=== PATIENT | female | born 1940 | race Caucasian/White ===

== ENCOUNTER → 2016-08-29 | Outpatient (CLI) | payer OTHER ==
[~2016-08-29] MED LIST: IOPAMIDOL (ISOVUE 370) 100 ML BTL IV ONE
--- NOTE | 2016-08-30 19:50 | CT ---
CT Angiography of the Abdomen and Pelvis Clinical Indications: Abdominal discomfort. Looking for vascular occlusion. Technique: Thinly collimated multidetector helical data were obtained through the abdomen and pelvis during the administration of 90 mL of Isovue-370 IV contrast during the arterial phase of contrast e nhancement. Repeat 5-mm images are obtained in venous phase. Images were then transferred to an [facility] workstation where multiplanar and three-dimensional reconstructions were performed by the ra diologist. Appropriate images were stored on PACS. Dose reduction techniques were utilized. Findings CT Angiography: The descending thoracic aorta is normal at 19 mm. There is no significant atheroscl erotic plaque. There is minimal plaque at the infrarenal abdominal aorta. No dissection or aneurysm . The iliac vessels are tortuous but without significant calcifications. They are patent down to th e proximal thigh, with widely patent inline flow. The patient has a large celiac axis and SMA, both of which are widely patent. The bifurcation vessel s off of these main trunks are also normal. There is a patent DENNIS. Arterial phase evaluation of the solid and visceral organs are normal, with the exception of a small right kidney. This is caused by a chronically diminished size of two right-sided renal arteries. Th e left kidney is normal. Specifically, there is no evidence for biliary dilatation or obstruction, v isceral organ mass, or pancreatic mass. No adenopathy or ascites. There is a moderate amount of sto ol in the colon that is nonspecific. There are some loops of small bowel in the lower pelvis that ar e fluid filled, however, without wall thickening or distention. I think this is nonspecific in this patient. Impressions 1. No vascular stenosis or occlusion in the celiac trunk or SMA. 2. Incidental chronically decreased or small right renal arteries, contributing to right renal atrop hy. 3. Mild amount of atherosclerotic disease of the aorta, without dissection or aneurysm. 4. No specific abnormalities found in the solid and visceral organs.
== END ==
LOC: FIMAGING 14:42
PROVIDERS: ATTEND Internal Medicine
DX: R10.9 Unspecified abdominal pain (principal); N26.1 Atrophy of kidney (terminal); I25.10 Atherosclerotic heart disease of native coronary artery without angina pectoris
CPT/HCPCS: 74174; Q9967

== ENCOUNTER 2017-05-07 11:23 | Observation (INO) | payer OTHER ==
--- NOTE | 2017-05-07 12:04 | EDPHY ---
HPI/HX/ROS/PE/MDM Narrative: CHIEF COMPLAINT: Diarrhea, decreased appetite HPI: The patient is a 77 y/o female complaining of diarrhea and a decreased appetite this morning. This past year she has had stomach cramps, nausea, and diarrhea. This has led to a weight loss from 120 to 95 pounds. She was seen by Dr. 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 They have found no acute findings. In the past 4 weeks her diarrhea has worsened, consisting of 10 episodes. She has not seen any doctors in the past 4 weeks. Today she had another sudden onset of diarrhea and a loss of appetite. She is also always feeling cold The patient and her believe her symptoms are becoming worse. She take medications for her abdominal pain, stomach cramps, and nausea. Denies fever, blood in diarrhea, chest pain, urinary changes or other pertinent symptoms. REVIEW OF SYSTEMS: Aside from elements discussed in the HPI, a comprehensive 10-point review of systems was reviewed and is negative. PMH: Hypertension, hyperlipidemia, chronic pain, hysterectomy SOCIAL HISTORY: at bedside, lives in [place], retired PHYSICAL EXAM: General:Patient is alert, in no acute distress. ENT:Eyes are normal to inspection. ENT inspection normal. Neck: Normal inspection. Full range of motion. Respiratory:No respiratory distress. Breath sounds normal bilaterally. Cardiovascular: Regular rate and rhythm. Strong peripheral pulses. Normal cap refill. Abdomen:The abdomen is nontender to palpation. There are no peritoneal signs. There are normal bowel sounds. Back: Normal to inspection. No tenderness to palpation. Skin: Normal color. No rash. Warm and dry. Extremities: Normal appearance. Full range of motion. Neuro: Oriented x3. Normal motor function. Normal sensory function. Portions of this note were transcribed by an ED scribe. I personally performed the history, physical exam, and medical decision making; and confirm the accuracy of the information in the transcribed note. ED Course: The patient is a 77 y/o female presenting with diarrhea and decreased appetite, onset this morning. She has an extensive history of abdominal pain, stomach cramps, and nausea; however her diarrhea has worsened in the past 4 weeks. Her physical exam is normal. 1428: Reassessed patient and discussed laboratory results. She will admitted due to dehydration, anemia, and failure to thrive. 1440: Spoke with hospitalist service, Dr. Kunz accepts admission of this patient. - Data Points Laboratory Results: Laboratory Results 05/07/17 12:25 05/07/17 12:25 05/07/17 05/07/17 12:25 12:25 WBC 7.10 10^3/uL 10^3/uL (3.80-9.50) RBC 3.88 10^6/uL L 10^6/uL (4.18-5.33) Hgb 11.4 g/dL L g/dL (12.6-16.3) Hct 34.6 % L % (38.0-47.0) MCV 89.2 fL fL (81.5-99.8) MCH 29.4 pg pg (27.9-34.1) MCHC 32.9 g/dL g/dL (32.4-36.7) RDW 13.5 % % (11.5-15.2) Plt Count 267 10^3/uL 10^3/uL (150-400) MPV 9.8 fL fL (8.7-11.7) Neut % (Auto) 65.7 % % (39.3-74.2) Lymph % (Auto) 23.4 % % (15.0-45.0) [place] % (Auto) 9.0 % % (4.5-13.0) Eos % (Auto) 0.8 % % (0.6-7.6) Baso % (Auto) 0.8 % % (0.3-1.7) Nucleat RBC Rel Count 0.0 % % (0.0-0.2) Absolute Neuts (auto) 4.66 10^3/uL 10^3/uL (1.70-6.50) Absolute Lymphs (auto) 1.66 10^3/uL 10^3/uL (1.00-3.00) Absolute Monos (auto) 0.64 10^3/uL 10^3/uL (0.30-0.80) Absolute Eos (auto) 0.06 10^3/uL 10^3/uL (0.03-0.40) Absolute Basos (auto) 0.06 10^3/uL 10^3/uL (0.02-0.10) Absolute Nucleated RBC 0.00 10^3/uL 10^3/uL (0-0.01) Immature Gran % 0.3 % % (0.0-1.1) Immature Gran # 0.02 10^3/uL 10^3/uL (0.00-0.10) Sodium 139 mEq/L mEq/L (134-144) Potassium 2.9 mEq/L L mEq/L (3.5-5.2) Chloride 100 mEq/L mEq/L (97-110) Carbon Dioxide 30 mEq/l mEq/l (22-31) Anion Gap 9 mEq/L mEq/L (8-16) BUN 19 mg/dL mg/dL (7-23) Creatinine 0.8 mg/dL mg/dL (0.6-1.0) Estimated GFR > 60 Glucose 76 mg/dL mg/dL (70-100) Calcium 8.6 mg/dL mg/dL (8.5-10.4) Total Bilirubin 0.4 mg/dL mg/dL (0.1-1.4) Conjugated Bilirubin 0.3 mg/dL mg/dL (0.0-0.5) Unconjugated Bilirubin 0.1 mg/dL mg/dL (0.0-1.1) AST 21 IU/L IU/L (14-46) ALT 25 IU/L IU/L (9-52) Alkaline Phosphatase 49 IU/L IU/L (38-126) Total Protein 5.4 g/dL L g/dL (6.3-8.2) Albumin 3.1 g/dL L g/dL (3.5-5.0) Lipase 83 IU/L IU/L (23-300) TSH 1.460 uIU/mL uIU/mL (0.465-4.680) Medications Given: Discontinued Medications Sodium Chloride (Ns) 1,000 mls @ 0 mls/hr IV EDNOW ONE; Wide Open PRN Reason: Protocol Stop: 05/07/17 12:16 Last Admin: 05/07/17 12:34 Dose: 1,000 mls General Time Seen by Provider: 05/07/17 11:51 Initial Vital Signs: Initial Vital Signs Temperature (C) 36.4 C 05/07/17 11:28 Heart Rate 52 L 05/07/17 11:28 Blood Pressure 171/69 H 05/07/17 11:28 O2 Sat (%) 94 05/07/17 11:28 O2 Delivery Mode Room Air Allergies/Adverse Reactions: erythromycin base [Erythromycin Base] Allergy (Verified 07/05/10 12:14) Penicillins Allergy (Verified 07/05/10 12:14) Home Medications: Medication Instructions Recorded Valsartan [Diovan] 320 mg PO DAILY 11/07/09 Dicyclomine [Bentyl 20 MG (*)] 10 - 20 mg PO QID 04/26/14 oxyCODONE IR [Oxycodone Ir (*)] 5 mg PO BID@05,18 04/26/14 Aspirin EC [Aspirin EC 81 mg (*)] 81 mg PO DAILY 05/07/17 Omeprazole 40 mg PO DAILY 05/07/17 Departure - Departure Disposition: [facility]patient Acute Clinical Impression: Dehydration, Failure to thrive in adult Anemia Qualifiers: Anemia type: other cause Other causes of anemia: other cause, not classified Qualified Code(s): D64.89 - Other specified anemias Condition: Fair Report Scribed for: Sascha Child Report Scribed by: Aleksandra Shannon Date of Report: 05/07/17 Time of Report: 12:04
[2017-05-07] MEDS ORDERED: NS 1,000 ML IV ONE (12:15)
[2017-05-07 12:52] LABS: % IMMATURE GRANULYOCYTES 0.3 % (0.0-1.1); ABSOLUTE IMMATURE GRANULOCYTES 0.02 10^3/uL (0.00-0.10); ADD DIFF? NO; ADD MORPH? NO; ADD SCAN? NO; ATYPICAL LYMPHOCYTE FLAG 20 (0-99); FRAGMENT RBC FLAG 0 (0-99); HEMATOCRIT 34.6 % (38.0-47.0); HEMOGLOBIN 11.4 g/dL (12.6-16.3); LEFT SHIFT FLG 0 (0-99); LIPEMIA HEMOLYSIS FLAG 80 (0-99); MEAN CELL HEMOGLOBIN 29.4 pg (27.9-34.1); MEAN CELL HEMOGLOBIN CONCENTR. 32.9 g/dL (32.4-36.7); MEAN CELL VOLUME 89.2 fL (81.5-99.8); MEAN PLATELET VOLUME 9.8 fL (8.7-11.7); PLATELET CLUMPS FLAG 0 (0-99); PLATELET COUNT 267 10^3/uL (150-400); RED BLOOD CELL COUNT 3.88 10^6/uL (4.18-5.33); RED CELL DISTRIBUTION WIDTH 13.5 % (11.5-15.2)
[2017-05-07 13:17] LABS: ALANINE AMINOTRANSFERASE 25 IU/L (9-52); ALBUMIN 3.1 g/dL (3.5-5.0); ALKALINE PHOSPHATASE 49 IU/L (38-126); ANION GAP 9 mEq/L (8-16); ASPARTATE AMINOTRANSFERASE 21 IU/L (14-46); BILIRUBIN,TOTAL 0.4 mg/dL (0.1-1.4); BILIRUBIN-CONJUGATED 0.3 mg/dL (0.0-0.5); BILIRUBIN-UNCONJUGATED 0.1 mg/dL (0.0-1.1); CALCIUM 8.6 mg/dL (8.5-10.4); CARBON DIOXIDE 30 mEq/l (22-31); CHLORIDE 100 mEq/L (97-110); CREATININE 0.8 mg/dL (0.6-1.0); GLOMERULAR FILTRATION RATE > 60; GLUCOSE 76 mg/dL (70-100); POTASSIUM 2.9 mEq/L (3.5-5.2); SODIUM 139 mEq/L (134-144); TOTAL PROTEIN 5.4 g/dL (6.3-8.2)
[2017-05-07] MEDS ORDERED: NS W/ 20 KCl/L 1,000 ML IV SCH (14:45)
[2017-05-07] MEDS ORDERED: ONDANSETRON DISINTEGRATING 4 MG TAB PO PRN (14:46)
[2017-05-07] MEDS ORDERED: ONDANSETRON 4 MG/2 ML VIAL IVP PRN (14:46)
[2017-05-07] MEDS ORDERED: ACETAMINOPHEN 325 MG TAB PO PRN (14:46)
[2017-05-07] MEDS ORDERED: PROMETHAZINE HCL 25 MG/ML INJ IVP PRN (14:46)
[2017-05-07 15:16] LABS: % SATURATION 30 % (20-55); TOTAL IRON BINDING CAPACITY 210 ug/dL (260-490)
--- NOTE | 2017-05-07 15:17 | PDGENHP ---
History and Physical - Chief Complaint acute on chronic abdominal pain with diarrhea - History of Present Illness 77 yo female with long h/o chronic abdominal pain followed by Dr. Hernández GI, presents with acute on chronic abdominal pain with diarrhea. She has had 7-9 episodes of diarrhea over the past month. At times, she can have 4 episodes of diarrhea in 1 day, which occurred a week ago. Today, just one episode of diarrhea. No BRBPR or melanotic stools. thinks her pain is getting worse, with cramping and general stomach distress. He notes increased bowel action when he puts his hand on her stomach. Some nausea, no vomiting. No fevers. She in on Bentyl with minimal effect. She reports poor appetite with 20 lb weight loss. She says she has never had a colonoscopy, but said she had a c-scope in 2010 or 2011 and it was normal. She has also had CT scans, xray, EGD, ultrasounds and reflux test, all of which have been unrevealing. There has been some mention of IBS, but they do not have a diagnosis for her chronic abdominal pain. In the ED, she was found to have low potassium. She received IVF's and pain meds and is admitted to the hospital for further evaluation. History Information - Allergies/Home Medication List Allergies/Adverse Reactions: erythromycin base [Erythromycin Base] Allergy (Verified 07/05/10 12:14) Penicillins Allergy (Verified 07/05/10 12:14) Home Medications: Valsartan [Diovan] 320 mg PO DAILY 11/07/09 [Last Taken 05/06/17] Dicyclomine [Bentyl 20 MG (*)] 10 - 20 mg PO QID 04/26/14 [Last Taken 05/06/17] oxyCODONE IR [Oxycodone Ir (*)] 5 mg PO BID@05,18 04/26/14 [Last Taken 05/07/17] Aspirin EC [Aspirin EC 81 mg (*)] 81 mg PO DAILY 05/07/17 [Last Taken 05/07/17 09:00] Omeprazole 40 mg PO DAILY 05/07/17 [Last Taken Unknown] I have personally reviewed and updated: family history, medical history, social history, surgical history - Past Medical History hypertension, hyperlipidemia Additional medical history: chronic abdominal pain - Surgical History Reports: hysterectomy - Family History Positive for: non-pertinent - Social History Smoking Status: Never smoked Alcohol Use: None Drug Use: None Additional social history: Lives independently with who is present at the bedside Review of Systems Review of Systems: ROS: 10pt was reviewed & negative except for what was stated in HPI & below Physical Exam Physical Exam: Temp Pulse Resp BP Pulse Ox 36.6 C 65 16 175/84 H 95 05/07/17 14:00 05/07/17 14:00 05/07/17 14:00 05/07/17 14:00 05/07/17 14:00 Constitutional: chronically ill appearing Eyes: PERRL Ears, Nose, Mouth, Throat: moist mucous membranes Cardiovascular: regular rate and rhythym, no murmur, rub, or gallop Respiratory: no respiratory distress, clear to auscultation Gastrointestinal: normoactive bowel sounds, other (soft, nd, mild diffuse TTP without r/r/g, no peritoneal signs) Skin: warm Musculoskeletal: full muscle strength Neurologic: AAOx3 Psychiatric: interacting appropriately Lab Data & Imaging Review 05/07/17 12:25 05/07/17 12:25 WBC 7.10 10^3/uL (3.80-9.50) 05/07/17 12:25 RBC 3.88 10^6/uL (4.18-5.33) L 05/07/17 12:25 Hgb 11.4 g/dL (12.6-16.3) L 05/07/17 12:25 Hct 34.6 % (38.0-47.0) L 05/07/17 12:25 MCV 89.2 fL (81.5-99.8) 05/07/17 12:25 MCH 29.4 pg (27.9-34.1) 05/07/17 12:25 MCHC 32.9 g/dL (32.4-36.7) 05/07/17 12:25 RDW 13.5 % (11.5-15.2) 05/07/17 12:25 Plt Count 267 10^3/uL (150-400) 05/07/17 12:25 MPV 9.8 fL (8.7-11.7) 05/07/17 12:25 Neut % (Auto) 65.7 % (39.3-74.2) 05/07/17 12:25 Lymph % (Auto) 23.4 % (15.0-45.0) 05/07/17 12:25 [place] % (Auto) 9.0 % (4.5-13.0) 05/07/17 12:25 Eos % (Auto) 0.8 % (0.6-7.6) 05/07/17 12:25 Baso % (Auto) 0.8 % (0.3-1.7) 05/07/17 12:25 Nucleat RBC Rel Count 0.0 % (0.0-0.2) 05/07/17 12:25 Absolute Neuts (auto) 4.66 10^3/uL (1.70-6.50) 05/07/17 12:25 Absolute Lymphs (auto) 1.66 10^3/uL (1.00-3.00) 05/07/17 12:25 Absolute Monos (auto) 0.64 10^3/uL (0.30-0.80) 05/07/17 12:25 Absolute Eos (auto) 0.06 10^3/uL (0.03-0.40) 05/07/17 12:25 Absolute Basos (auto) 0.06 10^3/uL (0.02-0.10) 05/07/17 12:25 Absolute Nucleated RBC 0.00 10^3/uL (0-0.01) 05/07/17 12:25 Immature Gran % 0.3 % (0.0-1.1) 05/07/17 12:25 Immature Gran # 0.02 10^3/uL (0.00-0.10) 05/07/17 12:25 Sodium 139 mEq/L (134-144) 05/07/17 12:25 Potassium 2.9 mEq/L (3.5-5.2) L 05/07/17 12:25 Chloride 100 mEq/L (97-110) 05/07/17 12:25 Carbon Dioxide 30 mEq/l (22-31) 05/07/17 12:25 Anion Gap 9 mEq/L (8-16) 05/07/17 12:25 BUN 19 mg/dL (7-23) 05/07/17 12:25 Creatinine 0.8 mg/dL (0.6-1.0) 05/07/17 12:25 Estimated GFR > 60 05/07/17 12:25 Glucose 76 mg/dL (70-100) 05/07/17 12:25 Calcium 8.6 mg/dL (8.5-10.4) 05/07/17 12:25 Total Bilirubin 0.4 mg/dL (0.1-1.4) 05/07/17 12:25 Conjugated Bilirubin 0.3 mg/dL (0.0-0.5) 05/07/17 12:25 Unconjugated Bilirubin 0.1 mg/dL (0.0-1.1) 05/07/17 12:25 AST 21 IU/L (14-46) 05/07/17 12:25 ALT 25 IU/L (9-52) 05/07/17 12:25 Alkaline Phosphatase 49 IU/L (38-126) 05/07/17 12:25 Total Protein 5.4 g/dL (6.3-8.2) L 05/07/17 12:25 Albumin 3.1 g/dL (3.5-5.0) L 05/07/17 12:25 Lipase 83 IU/L (23-300) 05/07/17 12:25 TSH 1.460 uIU/mL (0.465-4.680) 05/07/17 12:25 Assessment & Plan Assessment: Acute on chronic abdominal pain - extensive prior w/u per GI unrevealing, ?IBS. Followed by Dr. Hernández, though they are interested in a 2nd opinion. Weight loss, anemia and recurrent diarrhea is concerning. She likely warrants repeat colonoscopy, though this can probably be done outpatient as she has no obstructive symptoms here. -check CT abd/pelvis -cont bentyl, supportive care -IVF's as is mildy volume depleted on arrival -cont BID oxycodone, would avoid dose escalation -consider GI consult if not improving Diarrhea - GI pathogen panel ordered. If neg for infection, could add immodium Anemia - Normocytic. ?ACD. As above, colonoscopy indicated, though may be done outpt unless e/o GI bleeding or obstructive symptoms arise. Hypokalemia - Likely due to GI losses with diarrhea history. Will replace, follow. Check Mag. Failure to thrive - will request nutrition consult, PT/OT evals. Full code Dispo - obs
[2017-05-07 15:45] LABS: FERRITIN - BCH 61.7 ng/mL (6.2-264.0)
[2017-05-07] MEDS: POTASSIUM Cl (KCl) 100 ML IV SCH ×4 (15:57→19:07)
[2017-05-07] MEDS ORDERED: PROTOCOL POTASSIUM 1 DOSE MISC PRN (16:02)
[2017-05-07] MEDS ORDERED: PROTOCOL MAGNESIUM 1 DOSE IV PRN (16:02)
[2017-05-07 16:16] LABS: FOLATE SERUM 7.25 ng/mL (2.80 - >20.00)
[2017-05-07] MEDS: VALSARTAN 160 MG TAB PO SCH (17:48)
[2017-05-07] MEDS: oxyCODONE IR 5 MG TAB PO SCH (17:49)
[2017-05-07] MEDS ORDERED: IOPAMIDOL (ISOVUE-300) 100 ML BTL ONE (19:37)
[2017-05-07] MEDS: DICYCLOMINE 20 MG TAB PO SCH (21:00)
[2017-05-08 05:03] VITALS: TEMP 97.5
[2017-05-08 05:26] LABS: HEMATOCRIT 32.3 % (38.0-47.0); HEMOGLOBIN 10.5 g/dL (12.6-16.3); MEAN CELL HEMOGLOBIN 28.8 pg (27.9-34.1); MEAN CELL HEMOGLOBIN CONCENTR. 32.5 g/dL (32.4-36.7); MEAN CELL VOLUME 88.7 fL (81.5-99.8); RED BLOOD CELL COUNT 3.64 10^6/uL (4.18-5.33); RED CELL DISTRIBUTION WIDTH 13.6 % (11.5-15.2)
[2017-05-08 05:39] LABS: POTASSIUM 3.1 mEq/L (3.5-5.2)
[2017-05-08 05:40] LABS: ANION GAP 4 mEq/L (8-16); CALCIUM 8.3 mg/dL (8.5-10.4); CARBON DIOXIDE 29 mEq/l (22-31); CHLORIDE 105 mEq/L (97-110); CREATININE 0.8 mg/dL (0.6-1.0); GLOMERULAR FILTRATION RATE > 60; GLUCOSE 69 mg/dL (70-100); MAGNESIUM 1.9 mg/dL (1.6-2.3); SODIUM 138 mEq/L (134-144)
[2017-05-08] MEDS: oxyCODONE IR 5 MG TAB PO SCH (06:31)
[2017-05-08] MEDS: DICYCLOMINE 20 MG TAB PO SCH ×2 (06:33→12:11)
[2017-05-08] MEDS ORDERED: VALSARTAN 160 MG TAB PO SCH (09:00)
[2017-05-08] MEDS ORDERED: NON-FORMULARY NEW DRUG (Valsartan [Diovan] 320 MG) PO SCH (09:00)
[2017-05-08] MEDS ORDERED: PANTOPRAZOLE SODIUM 40 MG TAB PO SCH (09:00)
[2017-05-08] MEDS ORDERED: NON-FORMULARY NEW DRUG (Omeprazole [Omeprazole] 40 MG) PO SCH (09:00)
[2017-05-08] MEDS ORDERED: MAGNESIUM SULF 1 GM/DEXTROSE 100 ML IV ONE (09:30)
[2017-05-08] MEDS ORDERED: POTASSIUM Cl (KCl) 40 MEQ in NS 1,000 ML IV SCH (09:30)
[2017-05-08] MEDS: VALSARTAN 160 MG TAB PO SCH (10:21)
--- NOTE | 2017-05-08 11:44 | ASMTCMCOM ---
CM Note CM Note Notes: Spoke w/RN, anticipate pt will dc home w/support of when medically stable. CM available for any changes. Date Signed: 05/08/2017 11:43 AM Electronically Signed By:Natalie Garay RN
[2017-05-08 12:01] VITALS: BP 151/69; PULSE 86; RESP 18; O2SAT 93
--- NOTE | 2017-05-08 12:57 | PDDCSUM ---
Discharge Summary Discharge Summary: DISCHARGE SUMMARY FOLLOW-UP ITEMS: Repeat creatinine BUN and lytes at clinic appointment DATE OF ADMISSION: 05/07/2017 DATE OF DISCHARGE: 05/08/2017 DISCHARGE DIAGNOSES: 1. Chronic diarrhea 2. Chronic abdominal pain 3. Chronic pain with continuous opiate dependency 4. Moderate dementia 5. Acute hypokalemia CONSULTATIONS: None PROCEDURES / IMAGING: CT of the abdomen demonstrating fluid-filled large bowel without overt colitis CHIEF COMPLAINT: Acute on chronic diarrhea SUBJECTIVE: Patient is feeling well at time discharge, she is not experiencing any abdominal pain or diarrhea PHYSICAL EXAM ON DISCHARGE: Systolic blood pressure is 150, heart rate 60, afebrile overnight, satting well on room air, alert awake oriented x2 to person and place, not to time, concentration is 7/7, patient is exceptionally hard of hearing, patient engages in some non directable activity, is somewhat hyperactive during our encounter, bowel sounds are present, abdomen is soft nontender nondistended LABS ON DISCHARGE: Potassium 3.1, creatinine 0.8, white blood count 5800, hemoglobin 10.3, B12 normal, folate normal, liver panel normal, iron level 63, TIBC 210, saturation 30%, fecal occult blood negative, GI pathogen PCR negative HOSPITAL COURSE BY PROBLEM: The patient presented with acute on chronic diarrhea in the setting of acute on chronic abdominal pain in the setting of moderate dementia. Her recent GI losses had resulted in acute hypokalemia, she received IV fluid supplementation. She was treated supportively and did not demonstrate any evidence of subsequent diarrhea or abdominal pain on the day of discharge. I suspect the patient has a chronic abdominal pain syndrome such as irritable bowel syndrome, which the patient's reports she has been dealing with for the last 40 years. Believe that in the setting of the patient's moderate dementia, her ability to cope and compensate for any discomfort is declined, resulting in more pronounced symptoms over the last 6 weeks. 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 Patient is currently utilizing Bentyl as needed for abdominal pain as well as Imodium as needed, and scheduled oxycodone 5 mg in the morning and at night. I counseled the patient's that her chronic use of oxycodone, which she has been taking for the last 2 months, carries certain risks such as falls, constipation , functional decline, and the patient her should be careful not to escalate the dosages, and should be intentional in its usage, revisited the conversation with her outpatient prescribing provider. Also recommend that the patient's gave her 2 mg of Imodium a scheduled basis in the morning, and gauge the affect. At the present time, the patient does not need an urgent colonoscopy, but if other causes of chronic diarrhea are to be evaluated, I recommend the patient follow up with her regular sock lining stitcher, Dr. Med Hernández. DISCHARGE MEDICATIONS: Please see official discharge medication reconciliation sheet in chart , Imodium 2 mg as needed, continue other home medications. DISCHARGE INSTRUCTIONS: Please have labs drawn prior to follow-up appointment.
--- NOTE | 2017-05-09 11:33 | ASDISCHSUM ---
Discharge Information Plan Status:Home with No Needs Medically Cleared to Leave: Discharge Date:05/08/2017 02:07 PM CM D/C Disposition:Home, Routine, Self-Care ADT D/C Disposition:Home, Routine, Self-Care Projected Discharge Date:05/08/2017 02:07 PM Transportation at D/C:Family Discharge Delay Reason: Follow-Up Date:05/08/2017 02:07 PM Discharge Slot: Final Diagnosis: Placement Information Patient Contact Information Contact Name:ARACELIS Relationship: Address:[address] [place], [place] [address]NIURKA SAENZ [place]:[facility] Phone: [facility]/Zip Code:[place] [address] Email: Financial Information Financial Class: Primary Plan Desc:MEDICARE OUTPATIENT Primary Plan Number:[id number] Secondary Plan Desc:LOUANN Secondary Plan Number:[id number] Assessment Information [facility] CM Progress Note CM Note CM Note Notes: Spoke w/RN, anticipate pt will dc home w/support of when medically stable. CM available for any changes. Date Signed: 05/08/2017 11:43 AM Electronically Signed By:Natalie Garay RN Intervention Information
== END 2017-05-08 14:07 | disposition home or self-care (01) ==
LOC: OBSVTOIN 14:46 → INTOOBSV 14:46 → F3E 15:54
PROVIDERS: ADMIT Hospitalist; ATTEND Internal Medicine
DX: R62.7 Adult failure to thrive (principal); R19.7 Diarrhea, unspecified; R10.84 Generalized abdominal pain; G89.29 Other chronic pain; F11.20 Opioid dependence, uncomplicated; F03.90 Unspecified dementia, unspecified severity, without behavioral disturbance, psychotic disturbance, mood disturbance, and anxiety; E87.6 Hypokalemia
CPT/HCPCS: 74177; 92523; 96360; 97165; 99285; G8987; G8988; G8989; G9168; G9169; G9170; J3475; Q9967; 82607-90